=== PATIENT | male | born 1960 | race Caucasian/White ===

== ENCOUNTER 2017-03-02 15:31 | Emergency (ER) | payer MEDICARE, OTHER ==
[2017-03-02] MEDS ORDERED: DIPH/PERTUSS(ACELL)/TETANUS VAC/PF 0.5 ML SYR (>=10YO) IM ONE (16:36)
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
[2017-03-02] MEDS ORDERED: LIDOCAINE 1% INJ-PF (10 MG/ML) 30 ML SDV INJ ONE (19:17)
[2017-03-02] MEDS ORDERED: CEPHALEXIN 500 MG CAPSULE PO ONE (21:08)
[2017-03-02] MEDS ORDERED: SULFAMETHOXAZOLE/TRIMETHOPRIM 800-160 MG TABLET PO ONE (21:08)
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
[2017-03-02 21:43] VITALS: BP 141/89
== END 2017-03-02 21:45 | disposition home or self-care (01) ==
LOC: ER 15:31
PROC: 0HQLXZZ Repair Left Lower Leg Skin, External Approach (ICD-10-PCS; principal; 2017-03-02)
DX: S81.012A Laceration without foreign body, left knee, initial encounter (principal); S89.92XA Unspecified injury of left lower leg, initial encounter; M25.562 Pain in left knee; M79.604 Pain in right leg; V29.9XXA Motorcycle rider (driver) (passenger) injured in unspecified traffic accident, initial encounter
CPT/HCPCS: 12005; 99283; 90471; 73140; 73562; 90715; L1830; A9270 ×2

== ENCOUNTER 2018-07-11 21:22 | Emergency (ER) | payer OTHER, MEDICARE ==
[2018-07-11] MEDS ORDERED: IBUPROFEN 600 MG TABLET PO ONE (22:27)
[2018-07-11] MEDS ORDERED: LIDOCAINE 5% (700 MG) TRANSDERMAL ADH..PATCH TP ONE (22:27)
[2018-07-11] MEDS ORDERED: ACETAMINOPHEN 325 MG TABLET PO ONE (22:27)
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
[2018-07-11 23:31] VITALS: BP 104/69
== END 2018-07-11 23:34 | disposition home or self-care (01) ==
LOC: ER 21:22
DX: S79.911A Unspecified injury of right hip, initial encounter (principal); M54.2 Cervicalgia; M54.9 Dorsalgia, unspecified; M25.551 Pain in right hip; V87.7XXA Person injured in collision between other specified motor vehicles (traffic), initial encounter; Z87.820 Personal history of traumatic brain injury; I10 Essential (primary) hypertension; E78.5 Hyperlipidemia, unspecified
CPT/HCPCS: 99284

== ENCOUNTER 2019-11-19 13:55 | Emergency (ER) | payer MEDICARE ==
--- NOTE | 2019-11-19 14:17 | ER Document Report ---
ED Medical Screen (RME) - General Chief Complaint: Leg Swelling Stated Complaint: LEG SWELLING Time Seen by Provider: 11/19/19 14:13 Primary Care Provider: SHIRA MAGALLON [Primary Care Provider] - Follow up as needed TRAVEL OUTSIDE OF THE [place] 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 Patient does have soreness in his leg. His orthopedic provider yesterday did not think there was much of an infection in there. No history of DVT or PE. He is not on any blood thinning medications. No fever, chest pain, shortness of breath. I have treated and performed a rapid initial assessment of this patient. A comprehensive ED assessment and evaluation of the patient, analysis of test results and completion of medical decision making process will be conducted by additional ED providers. PHYSICAL EXAMINATION: GENERAL: Well-appearing, well-nourished and in no acute distress. A&Ox4. Answers questions appropriately. Right leg: BKA noted with mild distal erythema and swelling to the right lower extremity. - Related Data Allergies/Adverse Reactions: Bee Stings Allergy (Uncoded 11/19/19 14:13) Past Medical History - Past Medical History Cardiac Medical History: Reports: Hx Hypercholesterolemia, Hx Hypertension Renal/ Medical History: Denies: Hx Peritoneal Dialysis Traumatic Medical History: Reports: Hx Traumatic Brain Injury Past Surgical History: Reports: Hx Orthopedic Surgery - Immunizations Hx Diphtheria, Pertussis, Tetanus Vaccination: No Physical Exam - Vital signs Vitals: Temp Pulse Resp BP Pulse Ox 97.8 F 84 18 122/71 96 11/19/19 13:57 11/19/19 13:57 11/19/19 13:57 11/19/19 13:57 11/19/19 13:57 Course - Vital Signs Vital signs: Temp Pulse Resp BP Pulse Ox 97.8 F 84 18 122/71 96 11/19/19 13:57 11/19/19 13:57 11/19/19 13:57 11/19/19 13:57 11/19/19 13:57 Doctor's Discharge - Discharge Referrals: SHIRA MAGALLON [Primary Care Provider] - Follow up as needed
[2019-11-19 14:47] LABS: ABSOLUTE EOSINOPHILS # (AUTO) 0.3 10^3/uL (0.0-0.6); ABSOLUTE LYMPHOCYTES (AUTO) 1.6 10^3/uL (0.5-4.7); ABSOLUTE MONOCYTES (AUTO) 1.1 10^3/uL (0.1-1.4); ABSOLUTE NEUT (AUTO) 6.7 10^3/uL (1.7-8.2); BASOPHILS % (AUTO) 0.3 % (0-2); HEMATOCRIT 32.1 % (37.9-51.0); HEMOGLOBIN 10.5 g/dL (13.5-17.0); LYMPHOCYTES % (AUTO) 16.6 % (13-45); MEAN CORPUSCULAR HEMOGLOBIN 26.5 pg (27.0-33.4); MEAN CORPUSCULAR HGB CONC 32.9 g/dL (32.0-36.0); MEAN CORPUSCULAR VOLUME 81 fl (80-97); MONOCYTES % (AUTO) 10.9 % (3-13); PLATELET COUNT 367 10^3/uL (150-450); RED BLOOD COUNT 3.98 10^6/uL (4.35-5.55); RED CELL DISTRIBUTION WIDTH 16.8 % (11.5-14.0); SEGMENTED NEUTROPHILS % (AUTO) 69.2 % (42-78); TOTAL CELLS COUNTED % (AUTO) 100 %; WHITE BLOOD COUNT 9.7 10^3/uL (4.0-10.5)
--- NOTE | 2019-11-19 14:55 | RADIOLOGY REPORT (SQ) ---
EXAM DESCRIPTION: TIBIA FIBULA RIGHT COMPLETED DATE/TIME: 11/19/2019 2:43 pm REASON FOR STUDY: Rt BKA, swelling COMPARISON: None. NUMBER OF VIEWS: Two views. TECHNIQUE: AP and lateral views of the right knee were obtained. LIMITATIONS: None. FINDINGS: MINERALIZATION: Normal. BONES: Status post BKA. 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 There is no fracture or erosion o f the fibular and tibial stumps. SOFT TISSUES: No subcutaneous emphysema, discernible soft tissue defect or radiopaque foreign body. OTHER: No other finding. IMPRESSION: Status post BKA. There is no acute osseous abnormality. TECHNICAL DOCUMENTATION: JOB ID: [id number] 2010 [employer]- All Rights Reserved Reading location - IP/workstation name: [email or web address]
[2019-11-19 14:59] LABS: INTERNATIONAL RATION (INR) 1.05; PARTIAL THROMBOPLASTIN TIME 33.1 SEC (23.5-35.8); PROTHROMBIN TIME 13.7 SEC (11.4-15.4)
[2019-11-19 15:04] LABS: ALKALINE PHOSPHATASE 139 U/L (38-126); ANION GAP 9 (5-19); ASPARTATE AMINO TRANSFERASE 44 U/L (17-59); BILIRUBIN,TOTAL 0.5 mg/dL (0.2-1.3); BLOOD UREA NITROGEN 17 mg/dL (7-20); CALCIUM 9.2 mg/dL (8.4-10.2); CARBON DIOXIDE 27 mmol/L (22-30); CHLORIDE 100 mmol/L (98-107); GLUCOSE 99 mg/dL (75-110); POTASSIUM 4.4 mmol/L (3.6-5.0); TOTAL PROTEIN 7.5 g/dL (6.3-8.2)
--- NOTE | 2019-11-19 17:55 | RADIOLOGY REPORT (SQ) ---
EXAM DESCRIPTION: VENOUS UNILATERAL LOWER COMPLETED DATE/TIME: 11/19/2019 5:31 pm REASON FOR STUDY: rt LE swelling, h/o BKA COMPARISON: None. TECHNIQUE: Dynamic and static souza scale and color images acquired of the right leg venous system. S elected spectral images acquired with additional compression and augmentation maneuvers. The contrala teral common femoral vein and saphenofemoral junction were also imaged. Images stored on PACS. LIMITATIONS: None. FINDINGS: Noncompressible common femoral, superficial femoral veins. OTHER: No other significant finding. CONTRALATERAL COMMON FEMORAL VEIN AND SAPHENOFEMORAL JUNCTION: Normal phasicity, compression and augmentation. No visualized echogenic material on souza scale. No de fects on color images. IMPRESSION: Extensive DVT throughout the right femoral veins. TECHNICAL DOCUMENTATION: JOB ID: [id number] 2010 [employer]- All Rights Reserved Reading location - IP/workstation name: [email or web address]
[2019-11-19] MEDS ORDERED: RIVAROXABAN 15 MG TABLET PO ONE (20:28)
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
[2019-11-19 22:03] VITALS: BP 132/65
== END 2019-11-19 22:03 | disposition home or self-care (01) ==
LOC: ER 13:55
DX: I82.411 Acute embolism and thrombosis of right femoral vein (principal); M79.89 Other specified soft tissue disorders; E78.00 Pure hypercholesterolemia, unspecified; I10 Essential (primary) hypertension; Z89.511 Acquired absence of right leg below knee; Z87.820 Personal history of traumatic brain injury
CPT/HCPCS: 36415; 80053; 85025; 85610; 85730; 93971; 99284

== ENCOUNTER 2019-12-15 12:38 | Outpatient (CLI) | payer MEDICARE ==
[~2019-12-15 12:38] MED LIST: FERUMOXYTOL 510 MG in NORMAL SALINE 100 ML IV PRN; NORMAL SALINE 250 ML IV PRN
[2019-12-15] MEDS ORDERED: FERUMOXYTOL 510 MG in NORMAL SALINE 100 ML IV PRN (13:21)
[2019-12-15 13:42] VITALS: BP 117/63
== END 2019-12-15 14:22 | disposition home or self-care (01) ==
LOC: II 12:38 → 5TH 13:39 → II 14:22
PROVIDERS: ATTEND Internal Medicine
DX: D50.9 Iron deficiency anemia, unspecified (principal); K90.9 Intestinal malabsorption, unspecified
CPT/HCPCS: 96365; Q0138; J7050

== ENCOUNTER 2019-12-22 12:02 | Outpatient (CLI) | payer MEDICARE ==
[~2019-12-22 12:02] MED LIST changes: +FERUMOXYTOL (NON-ESRD) 510 MG/NS 100 ML IV PRN; -FERUMOXYTOL 510 MG in NORMAL SALINE 100 ML IV PRN
[2019-12-22 12:26] VITALS: BP 117/71
== END 2019-12-22 13:31 | disposition home or self-care (01) ==
LOC: II 12:02 → 5TH 12:05 → II 13:31
PROVIDERS: ATTEND Internal Medicine
DX: D50.9 Iron deficiency anemia, unspecified (principal); K90.9 Intestinal malabsorption, unspecified
CPT/HCPCS: 96365; Q0138; J7050